=== PATIENT | female | born 1995 | race Asian ===

== ENCOUNTER 2017-12-24 23:54 | Emergency (ER) | payer OTHER ==
[~2017-12-24] VITALS: Ht 157.5 cm; Wt 43.2 kg
[2017-12-25 04:12] VITALS: BP 101/65
== END 2017-12-25 04:25 | disposition home or self-care (01) ==
LOC: EMS 23:55
DX: R59.1 Generalized enlarged lymph nodes (principal); K21.9 Gastro-esophageal reflux disease without esophagitis
CPT/HCPCS: 99284